=== PATIENT | female | born 1935 | race Native Hawaiian/Other Pacific Islander ===

== ENCOUNTER 2019-12-26 11:22 | Outpatient (CLI) | payer OTHER ==
[2019-12-26 12:54] LABS: POTASSIUM 2.9 mmol/L (3.6-5.2)
== END 2019-12-26 19:02 | disposition home or self-care (01) ==
LOC: LAB 11:22
PROVIDERS: Nurse Practitioner Family
DX: I11.0 Hypertensive heart disease with heart failure (principal); I50.9 Heart failure, unspecified; R60.0 Localized edema
CPT/HCPCS: 80053; 83880

== ENCOUNTER 2020-01-02 09:59 | Outpatient (CLI) | payer OTHER | END 2020-01-02 22:53 | disposition home or self-care (01) | LOC: LAB 09:59 | PROVIDERS: Nurse Practitioner Family | DX: E87.1 Hypo-osmolality and hyponatremia (principal); E87.8 Other disorders of electrolyte and fluid balance, not elsewhere classified | CPT/HCPCS: 80053 ==

== ENCOUNTER 2020-02-12 11:21 | Outpatient (CLI) | payer OTHER ==
[2020-02-12 12:01] LABS: PLATELET COUNT 242 K/uL (152-353)
[2020-02-12 12:30] LABS: POTASSIUM 3.3 mmol/L (3.6-5.2)
== END 2020-02-12 22:06 | disposition home or self-care (01) ==
LOC: LAB 11:21
PROVIDERS: Nurse Practitioner Family
DX: I11.0 Hypertensive heart disease with heart failure (principal); I50.9 Heart failure, unspecified; E87.8 Other disorders of electrolyte and fluid balance, not elsewhere classified; I48.91 Unspecified atrial fibrillation; R60.0 Localized edema
CPT/HCPCS: 80053; 83880; 85027

== ENCOUNTER 2020-03-17 10:48 | Outpatient (CLI) | payer OTHER ==
[2020-03-17 11:26] LABS: PLATELET COUNT 238 K/uL (152-353)
[2020-03-17 12:12] LABS: POTASSIUM 3.4 mmol/L (3.6-5.2)
== END 2020-03-17 23:22 | disposition home or self-care (01) ==
LOC: LAB 10:48
PROVIDERS: Nurse Practitioner Family
DX: E87.1 Hypo-osmolality and hyponatremia (principal); R60.0 Localized edema; E87.8 Other disorders of electrolyte and fluid balance, not elsewhere classified; E87.6 Hypokalemia; I50.9 Heart failure, unspecified; R26.89 Other abnormalities of gait and mobility; Z78.9 Other specified health status; I11.0 Hypertensive heart disease with heart failure
CPT/HCPCS: 80053; 83880; 85027

== ENCOUNTER 2020-06-17 12:48 | Outpatient (CLI) | payer OTHER ==
[2020-06-17 13:12] LABS: PLATELET COUNT 227 K/uL (152-353)
[2020-06-17 13:42] LABS: POTASSIUM 3.3 mmol/L (3.6-5.2)
== END 2020-06-17 22:35 | disposition home or self-care (01) ==
LOC: LAB 12:48
PROVIDERS: Nurse Practitioner Family
DX: I10 Essential (primary) hypertension (principal); R60.0 Localized edema; I48.91 Unspecified atrial fibrillation; R06.02 Shortness of breath; Z13.29 Encounter for screening for other suspected endocrine disorder; Z13.220 Encounter for screening for lipoid disorders; Z79.899 Other long term (current) drug therapy
CPT/HCPCS: 80053; 80061; 81000; 83036; 83880; 84443; 85027

== ENCOUNTER 2020-10-21 11:50 | Outpatient (CLI) | payer OTHER ==
[2020-10-21 13:09] LABS: PLATELET COUNT 230 K/uL (152-353)
[2020-10-21 13:30] LABS: POTASSIUM 3.2 mmol/L (3.6-5.2)
== END 2020-10-21 19:56 | disposition home or self-care (01) ==
LOC: LAB 11:50
PROVIDERS: ATTEND Nurse Practitioner Family
DX: I11.0 Hypertensive heart disease with heart failure (principal); I48.91 Unspecified atrial fibrillation; R60.0 Localized edema; I50.9 Heart failure, unspecified; R30.0 Dysuria
CPT/HCPCS: 80053; 80061; 81000; 83880; 84443; 85027

== ENCOUNTER 2021-03-23 11:32 | Outpatient (CLI) | payer OTHER ==
[2021-03-23 11:55] LABS: PLATELET COUNT 264 K/uL (152-353)
[2021-03-23 12:16] LABS: POTASSIUM 3.3 mmol/L (3.6-5.2)
== END 2021-03-23 19:25 | disposition home or self-care (01) ==
LOC: LAB 11:32
PROVIDERS: ATTEND Nurse Practitioner Family
DX: I11.0 Hypertensive heart disease with heart failure (principal); I50.9 Heart failure, unspecified; R26.89 Other abnormalities of gait and mobility; I48.91 Unspecified atrial fibrillation; I49.1 Atrial premature depolarization; R53.83 Other fatigue; Z13.1 Encounter for screening for diabetes mellitus; R23.8 Other skin changes; Z79.899 Other long term (current) drug therapy
CPT/HCPCS: 80053; 80061; 83036; 83880; 84443; 85027